=== PATIENT | female | born 1955 | race Caucasian/White ===

== ENCOUNTER → 2016-07-16 | Outpatient (CLI) | payer OTHER ==
[~2016-07-16] MED LIST: ALLOPURINOL300 M1 PO; ASPIRIN 81MG TA81 MG PO; CLARITIN LIQUI-10 MG PO; CYCLOBENZ5 MG PO; FLEXERIL10 MG PO; FUROSEMIDE 20MG20 MG FT; GABAPENTIN300 MG PO; GLIPIZIDE 5MG TA5 MG PO; GOOD NEIGHBOR P20 M1 PO; INVOKANA100 MG PO; LEVOTHYROXIN0.125 M2 PO; LISINOPRIL 5MG T5 MG PO; LORATADINE 10MG10 M1 PO; MELOXICAM7.5 MG PO; METFORMIN1000 MG PO; PRAVASTATIN 20M20 MG PO
--- NOTE | 2016-07-18 14:18 | RADIOLOGY REPORT PS360 ---
DIG MAMM-SCREEN [facility] W/CAD CAD Screening COMPARISON: Digital mammograms 05/26/2014 and 07/09/2015 INDICATION: There is no personal or family history of breast cancer. This been previous biopsy left breast for benign disease. TECHNIQUE: Standard CC and MLO images were obtained. R2 CAD reviewed. FINDINGS: The breasts are low density comprised primarily of fat with minimal scattered fibroglandular densities seen throughout each breast. There are a few benign-appearing calcifications in each breast. There is a biopsy clip upper outer quadrant left breast with minimal surrounding post biopsy scarring noted. There is no suspicious lesion and no suspicious microcalcifications. There are fatty replaced nodes in both axilla. IMPRESSION: Fatty type breast parenchyma with no suspicious lesion seen recommend yearly follow-up BI-RADS CATEGORY: 2_Benign RECOMMENDED FOLLOWUP: 12M 12 MONTH FOLLOW-UP (A letter has been sent to the patient regarding results of the study.)
== END ==
LOC: RAD 16:02
DX: Z12.31 Encounter for screening mammogram for malignant neoplasm of breast (principal)
CPT/HCPCS: G0202